=== PATIENT | female | born 1955 | race Caucasian/White ===

== ENCOUNTER 2024-09-30 01:28 | Emergency (ER) | payer MEDICARE ==
[~2024-09-30] VITALS: Ht 157.5 cm; Wt 65.3 kg
[2024-09-30] MEDS ORDERED: BASAGLAR K100 UNIT/1 SC (01:33)
[2024-09-30] MEDS ORDERED: NOVOLOG100 UNIT/3 SQ (01:34)
[2024-09-30] MEDS ORDERED: OXYACE7.5T PO (02:50)
[2024-09-30] MEDS ORDERED: DOCU100 PO (02:50)
== END 2024-09-30 06:05 | disposition home or self-care (01) ==
LOC: ER 01:28
DX: N83.201 Unspecified ovarian cyst, right side (principal); R10.32 Left lower quadrant pain; E11.9 Type 2 diabetes mellitus without complications; Z79.4 Long term (current) use of insulin
CPT/HCPCS: 76830; 76856; 99284-25